=== PATIENT | male | born 1965 | race Caucasian/White ===

== ENCOUNTER → 2018-01-02 16:41 | Outpatient (CLI) | payer BC ==
[2018-01-02 17:49] LABS: LDL-HDL RATIO 1.8 ratio (1.5-3.5); T4 THYROXINE 7.5 ug/dL (4.7-13.3); THYROID STIMULATING HORMONE 1.86 uIU/mL (0.36-3.74)
== END | disposition home or self-care (01) ==
LOC: D.LABREF 16:41
PROVIDERS: Internal Medicine Cardiovascular Disease
DX: R07.9 Chest pain, unspecified (principal)

== ENCOUNTER → 2018-05-26 17:05 | Outpatient (CLI) | payer BC ==
[2018-05-26 19:05] LABS: LDL-HDL RATIO 0.7 ratio (1.5-3.5)
== END | disposition home or self-care (01) ==
LOC: D.LABREF 17:05
PROVIDERS: Internal Medicine Cardiovascular Disease
DX: E78.5 Hyperlipidemia, unspecified (principal)